=== PATIENT | female | born 1955 | race Caucasian/White ===

== ENCOUNTER 2016-10-18 17:18 | Emergency (ER) | payer BC ==
[2016-10-18 17:25] VITALS: BP 136/80
[2016-10-18] MEDS ORDERED: Ketorolac 60 MG/2 ML SDV IM ONE (17:31)
--- NOTE | 2016-10-18 17:31 | EDM.PDOC ---
ED HPI GENERAL MEDICAL PROBLEM - General Chief Complaint: Lower Extremity Injury/Pain Stated Complaint: PAIN KNEE Time Seen by Provider: 10/18/16 17:26 Source of Information: Reports: Patient History Limitations: Reports: No Limitations - History of Present Illness INITIAL COMMENTS - FREE TEXT/NARRATIVE: History of present illness: 61-year-old female presenting status post fall from stoop on the back of the house. Patient fell landing badly on her left knee with subsequent pain Review of systems: As per history of present illness and below otherwise all systems reviewed and negative. Past medical history: As per history of present illness and as reviewed below otherwise noncontributory. Surgical history: As per history of present illness and as reviewed below otherwise noncontributory. Social history: No reported history of drug or alcohol abuse. Family history: As per history of present illness and as reviewed below otherwise noncontributory. Physical exam: HEENT: Atraumatic, normocephalic, pupils reactive, negative for conjunctival pallor or scleral icterus, mucous membranes moist, throat clear, neck supple, nontender, trachea midline. Lungs: Clear to auscultation, breath sounds equal bilaterally, chest nontender. Heart: S1S2, regular, negative for clicks, rubs, or JVD. Abdomen: Soft, nondistended, nontender. Negative for masses or hepatosplenomegaly. Negative for costovertebral tenderness. Pelvis: Stable nontender. Genitourinary: Deferred. Rectal: Deferred. Extremities: Atraumatic, negative for cords or calf pain. Neurovascular unremarkable. Neuro: Awake, alert, oriented. Cranial nerves II through XII unremarkable. Cerebellum unremarkable. Motor and sensory unremarkable throughout. Exam nonfocal. Diagnostics: [X-ray of left knee] Therapeutics: [Toradol 60 mg IM] Impression: [Knee pain] Plan: [NSAIDS] Definitive disposition and diagnosis as appropriate pending reevaluation and review of above. Left knee Pain Score (Numeric/FACES): 9 - Related Data Allergies Allergy/AdvReac Type Severity Reaction Status Date / Time No Known Allergies Allergy Verified 10/18/16 17:23 Home Meds: Home Meds Levothyroxine Sodium [Synthroid] 25 mcg PO DAILY 06/18/16 [History] Topiramate [Topamax] 25 mg PO DAILY 06/18/16 [History] atorvaSTATin [Lipitor] 10 mg PO ONETIME 06/18/16 [History] metFORMIN [Glucophage] 1 tab PO BID 06/18/16 [History] Meloxicam 7.5 mg PO BID #30 tablet 10/18/16 [Rx] Past Medical History HEENT History: Reports: None Cardiovascular History: Reports: High Cholesterol Respiratory History: Reports: None Gastrointestinal History: Reports: None Genitourinary History: Reports: None 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: Musculoskeletal History: Reports: None Neurological History: Reports: None Psychiatric History: Reports: Anxiety Endocrine/Metabolic History: Reports: Diabetes, Type II Hematologic History: Reports: None Immunologic History: Reports: None Dermatologic History: Reports: None - Infectious Disease History Infectious Disease History: Reports: None Social & Family History - Family History Family Medical History: Noncontributory - Tobacco Use Smoking Status *Q: Never Smoker - Caffeine Use Caffeine Use: Reports: Coffee - Recreational Drug Use Recreational Drug Use: No Review of Systems - Review of Systems Review Of Systems: See Below (History of present illness) ED EXAM, GENERAL - Physical Exam Exam: See Below (See history of present illness) Course - Vital Signs Last Recorded V/S: Last Vital Signs Temp 36.2 C 10/18/16 17:23 Pulse 78 10/18/16 17:23 Resp 16 10/18/16 17:23 BP 136/80 10/18/16 17:23 Pulse Ox 95 10/18/16 17:23 - Orders/Labs/Meds Orders: Active Orders 24 hr Category Date Time Status Knee 3V Lt [CR] Stat Exams 10/18/16 17:24 Taken Meds: Medications Discontinued Medications Generic Name Dose Route Start Last Admin Trade Name Heriberto PRN Reason Stop Dose Admin Ketorolac Tromethamine 60 mg 10/18/16 17:31 10/18/16 18:28 Toradol IM 10/18/16 17:32 60 mg ONETIME ONE Administration Departure - Departure Time of Disposition: 19:05 Disposition: Home, Self-Care 01 Condition: Good Clinical Impression: Contusion - Discharge Information Forms: ED Department Discharge Additional Instructions: The following information is given to patients seen in the emergency department who are being discharged to home. This information is to outline your options for follow-up care. We provide all patients seen in our emergency department with a follow-up referral. The need for follow-up, as well as the timing and circumstances, are variable depending upon the specifics of your emergency department visit. If you don't have a primary care physician on staff, we will provide you with a referral. We always advise you to contact your personal physician following an emergency department visit to inform them of the circumstance of the visit and for follow-up with them and/or the need for any referrals to a consulting specialist. The emergency department will also refer you to a specialist when appropriate. This referral assures that you have the opportunity for follow-up care with a specialist. All of these measure are taken in an effort to provide you with optimal care, which includes your follow-up. Under all circumstances we always encourage you to contact your private physician who remains a resource for coordinating your care. When calling for follow-up care, please make the office aware that this follow-up is from your recent emergency room visit. If for any reason you are refused follow-up, please contact the [facility] Emergency Department at and asked to speak to the emergency department charge nurse. Technique medication as directed Follow-up with primary care provider once 2 days Return to ED as needed as discussed - My Orders Last 24 Hours: My Active Orders 10/18/16 17:24 Knee 3V Lt [CR] Stat - Assessment/Plan Last 24 Hours: My Active Orders 10/18/16 17:24 Knee 3V Lt [CR] Stat
--- NOTE | 2016-10-19 17:21 | CR ---
EXAM DATE: 10/18/16 PATIENT'S AGE: 61 Patient: MARIA INES CARBAJAL Facility: [place], [place] Site . Site : 1955 Study: XRay Knee [id number]/15/2017 5:48:30 PM Ordering Physician: Doctor Gonsalez Final Report: INDICATION: pain left knee TECHNIQUE: Left knee 3 views. COMPARISON: None. FINDINGS: Bones: Alignment is normal. No fractures or bone lesions. Joint spaces: Unremarkable. Soft tissues: Unremarkable. IMPRESSION: Unremarkable left knee. Dictated by: Jimmy Choe MD @ 10/18/2016 18:21:58 (Electronic Signature) Report Signed by Proxy. MAGALYS
== END 2016-10-18 19:19 | disposition home or self-care (01) ==
LOC: MW.ED 17:18
DX: S80.02XA Contusion of left knee, initial encounter (principal); E78.00 Pure hypercholesterolemia, unspecified; F41.9 Anxiety disorder, unspecified; E11.9 Type 2 diabetes mellitus without complications; Z79.84 Long term (current) use of oral hypoglycemic drugs; Z79.899 Other long term (current) drug therapy; W10.9XXA Fall (on) (from) unspecified stairs and steps, initial encounter
CPT/HCPCS: 73562; 96372; 99283; J1885

== ENCOUNTER 2017-09-17 07:39 | Day surgery (SDC) | payer BC ==
[~2017-09-17 07:39] MED LIST: Lactated Ringers 1,000 ML IV SCH; Sodium Chloride 0.9% 10 ML Syringe FLUSH PRN; Sodium Chloride 0.9% 2.5 ML Syringe FLUSH PRN
[2017-09-17] MEDS ORDERED: Lidocaine 2% 5 ML SDV ONE (08:17)
[2017-09-17] MEDS ORDERED: Propofol 200 MG/20 ML SDV ONE (08:17)
--- NOTE | 2017-09-17 08:17 | PCM.PREANE ---
Preanesthetic Assessment - Anesthesia/Transfusion/Family Hx Anesthesia History: Prior Anesthesia Without Reaction Family History of Anesthesia Reaction: No Transfusion History: No Prior Transfusion(s) - Review of Systems General: No Symptoms Pulmonary: Cough Gastrointestinal: No Symptoms Neurological: No Symptoms Other: Reports: None - Physical Assessment O2 Sat by Pulse Oximetry: 96 Respiratory Rate: 16 Vital Signs: Last Vital Signs Temp 36.7 C 09/17/17 07:58 Pulse 87 09/17/17 07:58 Resp 16 09/17/17 07:58 BP 124/63 09/17/17 07:58 Pulse Ox 96 09/17/17 07:58 Height: 1.6 m Weight: 111.13 kg ASA Class: 2 Mental Status: Alert & Oriented x3 Airway Class: Mallampati = 2 Dentition: Reports: Normal Dentition ROM/Head Extension: Full Lungs: Clear to Auscultation, Normal Respiratory Effort Cardiovascular: Regular Rate, Regular Rhythm - Allergies Allergies/Adverse Reactions: Allergies Allergy/AdvReac Type Severity Reaction Status Date / Time No Known Allergies Allergy Verified 09/12/17 10:44 - Anesthesia Plan Pre-Op Medication Ordered: None (PMH: DM2 sugar this am was 111) - Acknowledgements Anesthesia Type Planned: MAC Pt an Appropriate Candidate for the Planned Anesthesia: Yes Alternatives and Risks of Anesthesia Discussed w Pt/Guardian: Yes Pt/Guardian Understands and Agrees with Anesthesia Plan: Yes PreAnesthesia Questionnaire HEENT History: Reports: Other (See Below) Other HEENT History: wears glasses Cardiovascular History: Reports: High Cholesterol, Hypertension Respiratory History: Reports: None Gastrointestinal History: Reports: Chronic Constipation, Colon Polyp, Diverticulosis Genitourinary History: Reports: None [employer] History: Reports: Musculoskeletal History: Reports: None Neurological History: Reports: None Psychiatric History: Reports: Anxiety, Depression Endocrine/Metabolic History: Reports: Diabetes, Type II, Hypothyroidism, Obesity /BMI 30+ Hematologic History: Reports: None Immunologic History: Reports: None Dermatologic History: Reports: None - Infectious Disease History Infectious Disease History: Reports: None - Past Surgical History Head Surgeries/Procedures: Reports: None HEENT Surgical History: Reports: Tonsillectomy Cardiovascular Surgical History: Reports: None GI Surgical History: Reports: Appendectomy, Cholecystectomy, Colonoscopy Female Surgical History: Reports: Salpingo-Oophorectomy - SUBSTANCE USE Smoking Status *Q: Never Smoker Second Hand Smoke Exposure: No Recreational Drug Use History: No - HOME MEDS Home Medications: Home Meds Levothyroxine Sodium [Synthroid] 50 mcg PO DAILY 06/18/16 [History] Topiramate [Topamax] 25 mg PO DAILY 06/18/16 [History] atorvaSTATin [Lipitor] 10 mg PO ONETIME 06/18/16 [History] metFORMIN [Glucophage] 1 tab PO BID 06/18/16 [History] Docusate Sodium [Dulcolax Stool Softener] 1 tab PO ASDIRECTED PRN 09/12/17 [ History] Fish Oil/DHA/EPA [Fish Oil 1,200 MG] 1 tab PO BEDTIME 09/12/17 [History] Losartan [Cozaar] 1 tab PO BEDTIME 09/12/17 [History] Polyethylene Glycol 3350 [Miralax] 1 dose PO ASDIRECTED PRN 09/12/17 [History] Venlafaxine [Effexor XR] 1 tab PO BEDTIME 09/12/17 [History] cloZAPine 2 tab PO BEDTIME 09/12/17 [History] - CURRENT (IN HOUSE) MEDS Current Meds: Current Medications Lactated Ringer's (Ringers, Lactated) 1,000 mls @ 125 mls/hr IV ASDIRECTED TENZIN Last Admin: 09/17/17 08:01 Dose: 125 mls/hr Sodium Chloride (Saline Flush) 10 ml FLUSH ASDIRECTED PRN PRN Reason: Keep Vein Open Sodium Chloride (Saline Flush) 2.5 ml FLUSH ASDIRECTED PRN PRN Reason: Keep Vein Open Sodium Chloride (Saline Flush) 10 ml FLUSH ASDIRECTED PRN PRN Reason: Keep Vein Open Sodium Chloride (Saline Flush) 2.5 ml FLUSH ASDIRECTED PRN PRN Reason: Keep Vein Open
[2017-09-17] MEDS ORDERED: fentaNYL 100 MCG/2 ML SDV ONE (08:18)
--- NOTE | 2017-09-17 11:11 | PCM.OPNOTE ---
- General Post-Op/Procedure Note Date of Surgery/Procedure: 09/17/17 Operative Procedure(s): Diagnostic Colonoscopy Findings: Rectal Polyp Primary Surgeon: Blanca Guerrero Pathology: Rectal Polyp EBL in mLs: 1 Complications: None Condition: Good Free Text/Narrative:: Operative Procedure: Cecum to Rectal time was 11 minutes. Patient tolerated procedure well without any complications, There was a polyp appreciated in the Rectum which was excised and sent for pathology. Most likely etiology is benign hyperplastic polyp.
[2017-09-17 11:29] VITALS: BP 131/68
--- NOTE | 2017-09-17 11:42 | PCM.PRGIL ---
Lower GI Endoscopy Procedure Procedure:: Reports: Colonoscopy Intervention:: Biopsy Procedure Comments:: Cecum to Rectum time was 11 minutes, Patient tolerated Procedure well with no complications. Performed By:: Blanca Guerrero Date of Service:: 09/17/17 Informed Consent Obtained?: Yes Indications:: Reports: Other (Diagnostic Colonoscopy) Rectodigital Exam:: Reports: Normal Exam, Normal Rectal Tone Sedation:: Reports: Anesthesia Depth Reached (Location):: Reports: Cecum Landmarks:: Reports: Cecum - Findings Rectal:: Reports: Normal Hemorrhoids:: Reports: None Condyloma:: Reports: None Colitis (Location):: Reports: None Polyps location Comment:: 1 Polyp located in rectum which was excised and sent for pathology. Polyp Type Comments:: Likely hyperplastic in nature. Mass (Location):: Reports: None Previous Colon Surgery (Location):: Reports: None Stenosis (Location):: Reports: None Complications:: Reports: None Cultures:: Reports: None
--- NOTE | 2017-09-17 12:30 | PCM48HPAN ---
Post Anesthesia Note - EVALUATION WITHIN 48HRS OF ANESTHETIC Vital Signs in Normal Range: Yes Patient Participated in Evaluation: Yes Respiratory Function Stable: Yes Airway Patent: Yes Cardiovascular Function Stable: Yes Hydration Status Stable: Yes Pain Control Satisfactory: Yes Nausea and Vomiting Control Satisfactory: Yes Mental Status Recovered: Yes Resp Rate: 14
--- NOTE | 2017-09-17 12:30 | PCM.POSTAN ---
POST ANESTHESIA ASSESSMENT - MENTAL STATUS Mental Status: Alert, Oriented - RESPIRATORY Respiratory Status: Respiratory Rate WNL, Airway Patent, O2 Saturation Stable - CARDIOVASCULAR CV Status: Pulse Rate WNL, Blood Pressure Stable - GASTROINTESTINAL GI Status: No Symptoms - POST OP HYDRATION Hydration Status: Adequate & Stable
--- NOTE | 2017-09-18 09:40 | OR ---
SURGEON: BLANCA GUERRERO MD DATE OF PROCEDURE: 09/17/2017 PREOPERATIVE DIAGNOSIS: Change in bowel habits, family history of colon cancer. POSTOPERATIVE DIAGNOSIS: Rectal polyp. PROCEDURE PERFORMED: Diagnostic colonoscopy. ENDOSCOPIST: Blanca Guerrero MD. ANESTHESIA: MAC. INSTRUMENT USED: Olympus colonoscope. EXTENT OF EXAM: To the cecum. PREPARATION: Good. LIMITATIONS: None. INDICATION FOR EXAMINATION: The patient is a 62-year-old female, who presents with change in bowel habits. She has a direct family member, who has colon cancer. The decision was made to proceed with a diagnostic colonoscopy. The patient and I discussed the procedure, expected perioperative course, and risks including bleeding, infection, or damage to surrounding structures including perforation. The patient verbalized understanding and wishes to proceed. PROCEDURE IN DETAIL: The patient was brought to the endoscopy suite and placed in the left lateral decubitus position. A time-out was completed verifying the patient's name, age, date of , allergies, and procedure to be performed. Monitored anesthesia care was induced and continuous oxygen was provided via nasal cannula throughout the procedure. After adequate sedation was achieved, a digital rectal exam was performed. This exam was within normal limits. A well lubricated colonoscope was inserted in the rectum and advanced under direct visualization to the level of cecum. The cecum was identified by both visual and anatomic landmarks. A photograph was taken of cecal cap. However, I was unable to retroflex the scope within the cecum. The scope was then fully withdrawn while examining the color, texture, anatomy, and integrity of the mucosa from the cecum to the anal canal. The exam was normal. The scope was then brought into the rectum and retroflexed to allow visualization of the anal canal opening. The patient was found to have a small 1 to 2 mm sessile polyp. This was removed using a cold biopsy forceps. A photograph was then taken of the anal canal, which was otherwise normal. The scope was then straightened out and fully withdrawn. The cecum to anus time was 11 minutes. The patient tolerated the procedure well and was taken to PACU in stable condition. ENDOSCOPIC DIAGNOSIS: Rectal polyp. RECOMMENDATIONS: Follow up in clinic in 2 weeks. DEMETRIO WINTER /[id number]
== END 2017-09-17 11:40 | disposition home or self-care (01) ==
LOC: MW.SDS 07:39
PROVIDERS: ATTEND Surgery
DX: D12.8 Benign neoplasm of rectum (principal); E11.9 Type 2 diabetes mellitus without complications; E66.9 Obesity, unspecified; Z68.41 Body mass index [BMI] 40.0-44.9, adult; I10 Essential (primary) hypertension; E78.00 Pure hypercholesterolemia, unspecified; K59.09 Other constipation; E03.9 Hypothyroidism, unspecified; Z79.84 Long term (current) use of oral hypoglycemic drugs; Z79.899 Other long term (current) drug therapy; Z80.0 Family history of malignant neoplasm of digestive organs
CPT/HCPCS: 45380; 82962; J3010; J7120; J2704